=== PATIENT | male | born 2000 | race Caucasian/White ===

== ENCOUNTER 2020-04-04 16:24 | Emergency (ER) | payer OTHER ==
[~2020-04-04 16:24] MED LIST: IBUPROFEN600 MG PO; KEFLEX500 MG PO; NORFLEX 100 MG100 MG PO; ONDANSETRON ODT4 MG PO
[2020-04-04] MEDS ORDERED: CYCLOBENZAPRINE5 MG PO (17:35)
[2020-04-04] MEDS ORDERED: IBUPROFEN600 MG PO (17:35)
== END 2020-04-04 17:43 | disposition home or self-care (01) ==
LOC: ER1 16:24
DX: S16.1XXA Strain of muscle, fascia and tendon at neck level, initial encounter (principal); F17.200 Nicotine dependence, unspecified, uncomplicated; Z88.5 Allergy status to narcotic agent; X58.XXXA Exposure to other specified factors, initial encounter
CPT/HCPCS: 99283

== ENCOUNTER 2020-04-25 18:20 | Emergency (ER) | payer OTHER ==
[~2020-04-25 18:20] MED LIST changes: +CYCLOBENZAPRINE5 MG PO
[2020-04-25] MEDS ORDERED: CYCLOBENZAPRINE10 MG PO (20:06)
== END 2020-04-25 20:12 | disposition home or self-care (01) ==
LOC: ER1 18:20
DX: S16.1XXA Strain of muscle, fascia and tendon at neck level, initial encounter (principal); S29.012A Strain of muscle and tendon of back wall of thorax, initial encounter; F17.290 Nicotine dependence, other tobacco product, uncomplicated; Z88.1 Allergy status to other antibiotic agents; Z79.899 Other long term (current) drug therapy; X50.0XXA Overexertion from strenuous movement or load, initial encounter
CPT/HCPCS: 72040; 99283

== ENCOUNTER 2021-06-05 04:51 | Emergency (ER) | payer OTHER ==
[~2021-06-05 04:51] MED LIST changes: +CYCLOBENZAPRINE10 MG PO
[2021-06-05 05:40] LABS: HEMOGLOBIN 17.7 gm/dl (14.0-17.5); RED BLOOD COUNT 5.7 M/UL (4.20-5.50); WHITE BLOOD COUNT 15.3 K/UL (4.5-11.0)
[2021-06-05 06:22] LABS: BUN/CREATININE RATIO 21 (0-10)
[2021-06-05] MEDS ORDERED: ZOFRAN ODT 4 MG4 MG GT (06:51)
== END 2021-06-05 08:00 | disposition home or self-care (01) ==
LOC: ER1 04:51
PROVIDERS: Family Medicine
DX: R11.2 Nausea with vomiting, unspecified (principal); R19.7 Diarrhea, unspecified; F17.290 Nicotine dependence, other tobacco product, uncomplicated; Z88.8 Allergy status to other drugs, medicaments and biological substances
CPT/HCPCS: 80053; 83690; 85025; 96374; 99284; J2405